=== PATIENT | female | born 1995 | race Caucasian/White ===

== ENCOUNTER 2017-07-25 01:21 | Emergency (ER) | payer SELFPAY ==
[~2017-07-25] VITALS: Ht 160 cm; Wt 52.3 kg
[2017-07-25 01:22] VITALS: BP 115/73; PULSE 86; RESP 16; TEMP 98.6; O2SAT 98
[2017-07-25] MEDS ORDERED: SODIUM CHLOR 0.9% 1000 ML INJ 1,000 ML IV ONE (01:45)
[2017-07-25] MEDS ORDERED: ONDANSETRON HCL 4 MG/2 ML VIAL IV ONE (01:45)
[2017-07-25 01:56] LABS: AUTOMATED NEUTROPHIL # 3.5 TH/MM3 (1.8-7.7); BASOPHIL % 0.5 % (0.0-2.0); EOSINOPHIL # 0.2 TH/MM3 (0-0.4); EOSINOPHIL % 2.9 % (0.0-4.0); HEMATOCRIT 35.1 % (35.0-46.0); HEMO FLAGS DIFF FINAL; LYMPH % 46.9 % (9.0-44.0); LYMPHOCYTE # 3.9 TH/MM3 (1.0-4.8); MEAN CELL VOLUME 89.4 FL (80.0-100.0); MEAN CORPUSCULAR HEMOGLOBIN 29.6 PG (27.0-34.0); MEAN CORPUSCULAR HGB CONC 33.2 % (32.0-36.0); MONO % 7.2 % (0.0-8.0); NEUT % 42.5 % (16.0-70.0); PLATELET COUNT 209 TH/MM3 (150-450); RED BLOOD COUNT 3.93 MIL/MM3 (4.00-5.30); RED CELL DISTRIBUTION WIDTH 14.2 % (11.6-17.2); WHITE BLOOD COUNT 8.3 TH/MM3 (4.0-11.0)
[2017-07-25 02:27] LABS: ACETAMINOPHEN LESS THAN 2.0 MCG/ML (10.0-30.0); ALCOHOL LESS THAN 3 MG/DL (0-5); ALKALINE PHOSPHATASE 76 U/L (45-117); ALT (GPT) 24 U/L (9-42); ANION GAP 11 MEQ/L (5-15); AST (GOT) 21 U/L (16-38); BICARBONATE 25.5 MEQ/L (21.0-32.0); BLOOD UREA NITROGEN 14 MG/DL (7-18); CHLORIDE 102 MEQ/L (98-107); GLOMERULAR FILTRATION RATE 84 ML/MIN (>89); SODIUM (NA) 138 MEQ/L (136-145); TOTAL BILIRUBIN ADULT 0.2 MG/DL (0.2-1.0)
[2017-07-25 02:30] LABS: POTASSIUM 2.9 MEQ/L (3.5-5.1)
[2017-07-25] MEDS ORDERED: valACYclovir HCL 500 MG TAB PO ONE (02:30)
--- NOTE | 2017-07-25 02:37 | RADRPT ---
EXAM DATE/TIME: 07/25/2017 01:43 [place] COMPARISON: No previous studies available for comparison. INDICATIONS : Nausea and vomiting from a heroin overdose. MEDICAL HISTORY : None. SURGICAL HISTORY : None. ENCOUNTER: Initial ACUITY: 1 day PAIN SCORE: 0/10 LOCATION: Bilateral chest FINDINGS: A single view of the chest demonstrates the lungs to be symmetrically aerated without evidence of mas s, infiltrate or effusion. The cardiomediastinal contours are unremarkable. Osseous structures are intact. CONCLUSION: No acute disease. Rowdy Milian Jr., MD on July 25, 2017 at 2:36 Board Certified Radiologist. This report was verified electronically.
[2017-07-25 02:43] VITALS: O2SAT 100
[2017-07-25 02:48] LABS: BACTERIA, URINE RARE /hpf; BLOOD, URINE NEG (NEG); COMMENT (UR) CULTURE INDICATED; CULTURE IF INDICATED CULTURE INDICATED; GLUCOSE,URINE 70 mg/dL (NEG); HYALINE CAST, URINE 29 /lpf (RARE); KETONE, URINE NEG (NEG); MUCUS URINE MOD /lpf (OCC); NITRITE,URINE NEG (NEG); SQUAMOUS EPITHELIAL CELL URINE 1 /hpf (0-5); URINE COLOR YELLOW (YELLW/STRAW)
--- NOTE | 2017-07-25 03:23 | PD ---
HPI Chief Complaint: OD/ Ingestion Time Seen by Provider: 01:26 Travel History International Travel<30 days: No Contact w/Intl Traveler<30days: No Traveled to known affect area: No History of Present Illness HPI The patient is a 21 year old female who presents to the [facility] emergency department with a history of reportedly yesterday leaving a sober living facility. She reports that she used heroin for the first time again and accidentally overdosed. She denies any suicidal or homicidal ideations. The patient was noted to be unresponsive upon ambulance services arrival when her friend called. The patient was noted to be apneic, lips blue. The patient had IV access obtained and was given 0.4 mg of Narcan IV and then had resolution of her respiratory depression. On review of systems, the patient reports having a rash around the right eye. She reports that it began yesterday and is painful. She denies having any eye drainage or pain in the eye itself. On review of systems, she denies any recent fevers, cough, congestion, neck pain, chest pain , shortness of breath, abdominal pain, vomiting, diarrhea, urinary symptoms, or other neurologic symptoms. She denies having any known history of hepatitis C or HIV. LMP: And did a few days ago [facility] Past Medical History Narrative Medical The Patient's past medical history is significant for IV drug use since 19 years of age. The patient has a history of genital and oral herpes outbreaks in the past. Medical History: Denies Significant Hx Medical other: Yes (iv drug abuse) ?: Not LMP: 07/20/2017 Past Surgical History Surgical History: No Previous Surgery Social History Alcohol Use: No Tobacco Use: Yes (1ppd) Substance Use: Yes (heroine ) Allergies-Medications (Allergen,Severity, Reaction): Coded Allergies: No Known Allergies (Unverified , 07/25/17) Reported Meds & Prescriptions Reported Meds & Active Scripts Active No Active Prescriptions or Reported Medications Review of Systems Except as stated in HPI: all other systems reviewed are Neg General / Constitutional: No: Fever Eyes: No: Visual changes HENT: No: Headaches Cardiovascular: No: Chest Pain or Discomfort Respiratory: No: Shortness of Breath Gastrointestinal: No: Abdominal Pain Genitourinary: No: Dysuria Musculoskeletal: No: Pain Skin: Positive Rash Neurologic: Positive: Change in Mentation, No: Weakness, Focal Abnormalities, Headache, Slurred Speech, Sensory Disturbance Psychiatric: No: Depression Endocrine: No: Polydipsia Hematologic/Lymphatic: No: Easy Bruising Physical Exam Narrative General: The patient is a well-developed well-nourished female who arrives nauseated, dry heaving on arrival. Head and Neck exam: Head is normocephalic atraumatic. Eyes: EOMI, pupils are equal round and reactive to light. No conjunctival injection. The patient is noted to have slight erythema under the right eye, and overlying the erythema are tiny pustules. This also extends to the upper eyelid medial aspect. Eyes the eye itself does not appear to be involved. Nose: Midline septum with pink mucous membranes Mouth: Dentition unremarkable. Moist mucus membranes. Posterior oropharynx is not erythematous. No tonsillar hypertrophy. Uvula midline. Airway patent. Neck: No palpable lymphadenopathy. No nuchal rigidity. No thyromegaly. Cardiovascular: Regular rate and rhythm without murmurs, gallops, or rubs. Lungs: Clear to auscultation bilaterally. No wheezes, rhonchi, or rales. Abdomen: Soft, without tenderness to palpation in all 4 quadrants of the abdomen. No guarding, rebound, or rigidity. Normal bowel sounds are audible. No tenderness on palpation of McBurney's point. Extremities: No clubbing, cyanosis, or edema. 2+ pulses in all 4 extremities. No calf tenderness on palpation. Back: No spinous process tenderness to palpation. No costovertebral angle tenderness to palpation. Neurologic Exam: Grossly nonfocal. Skin Exam: No rash noted. Intact skin that is warm and dry. Data Data Last Documented VS Vital Signs Date Time Temp Pulse Resp B/P (MAP) Pulse Ox O2 Delivery O2 Flow Rate FiO2 07/25/17 02:43 100 07/25/17 01:22 98.6 86 16 115/73 (87) Orders Orders Complete Blood Count With Diff (07/25/17 01:36) Comprehensive Metabolic Panel (07/25/17 01:36) Lipase (07/25/17 01:36) Urinalysis - C+S If Indicated (07/25/17 01:36) Chest, Single Ap (07/25/17 01:36) Iv Access Insert/Monitor (07/25/17 01:36) Ecg Monitoring (07/25/17 01:36) Oximetry (07/25/17 01:36) Ed Urine Pregnancytest Poc (07/25/17 01:36) Drug Screen, Random Urine (07/25/17 01:36) Alcohol (Ethanol) (07/25/17 01:36) Salicylates (Aspirin) (07/25/17 01:36) Tylenol (Acetaminophen) (07/25/17 01:36) Sodium Chlor 0.9% 1000 Ml Inj (Ns 1000 M (07/25/17 01:45) Ondansetron Inj (Zofran Inj) (07/25/17 01:45) Valacyclovir (Valtrex) (07/25/17 02:30) Urine Culture (07/25/17 02:30) Ceftriaxone Inj (Rocephin Inj) (07/25/17 04:00) Potassium Chloride Eff (K-Lyte Cl Eff) (07/25/17 04:00) Labs Laboratory Tests Test 07/25/17 01:49 07/25/17 02:30 White Blood Count 8.3 TH/MM3 Red Blood Count 3.93 MIL/MM3 Hemoglobin 11.6 GM/DL Hematocrit 35.1 % Mean Corpuscular Volume 89.4 FL Mean Corpuscular Hemoglobin 29.6 PG Mean Corpuscular Hemoglobin Concent 33.2 % Red Cell Distribution Width 14.2 % Platelet Count 209 TH/MM3 Mean Platelet Volume 8.5 FL Neutrophils (%) (Auto) 42.5 % Lymphocytes (%) (Auto) 46.9 % Monocytes (%) (Auto) 7.2 % Eosinophils (%) (Auto) 2.9 % Basophils (%) (Auto) 0.5 % Neutrophils # (Auto) 3.5 TH/MM3 Lymphocytes # (Auto) 3.9 TH/MM3 Monocytes # (Auto) 0.6 TH/MM3 Eosinophils # (Auto) 0.2 TH/MM3 Basophils # (Auto) 0.0 TH/MM3 CBC Comment DIFF FINAL Differential Comment Blood Urea Nitrogen 14 MG/DL Creatinine 0.87 MG/DL Random Glucose 212 MG/DL Total Protein 7.0 GM/DL Albumin 3.3 GM/DL Calcium Level 8.7 MG/DL Alkaline Phosphatase 76 U/L Aspartate Amino Transf (AST/SGOT) 21 U/L Alanine Aminotransferase (ALT/SGPT) 24 U/L Total Bilirubin 0.2 MG/DL Sodium Level 138 MEQ/L Potassium Level 2.9 MEQ/L Chloride Level 102 MEQ/L Carbon Dioxide Level 25.5 MEQ/L Anion Gap 11 MEQ/L Estimat Glomerular Filtration Rate 84 ML/MIN Lipase 94 U/L Salicylates Level 1.7 MG/DL Acetaminophen Level LESS THAN 2.0 MCG/ML Ethyl Alcohol Level LESS THAN 3 MG/DL Urine Color YELLOW Urine Turbidity HAZY Urine pH 6.0 Urine Specific [place] 1.021 Urine Protein 100 mg/dL Urine Glucose (UA) 70 mg/dL Urine Ketones NEG mg/dL Urine Occult Blood NEG Urine Nitrite NEG Urine Bilirubin NEG Urine Urobilinogen LESS THAN 2.0 MG/DL Urine Leukocyte Esterase NEG Urine RBC 33 /hpf Urine WBC 9 /hpf Urine Squamous Epithelial Cells 1 /hpf Urine Amorphous Sediment RARE Urine Bacteria RARE /hpf Urine Hyaline Casts 29 /lpf Urine Mucus MOD /lpf Microscopic Urinalysis Comment CULTURE INDICATED Urine Opiates Screen NEG Urine Barbiturates Screen NEG Urine Amphetamines Screen NEG Urine Benzodiazepines Screen NEG Urine Cocaine Screen NEG Urine Cannabinoids Screen NEG MDM Medical Decision Making Medical Screen Exam Complete: Yes Emergency Medical Condition: Yes Medical Record Reviewed: Yes Interpretation(s) Last Impressions Chest X-Ray 07/25/17 0136 Signed Impressions: Service Date/Time: Tuesday, July 25, 2017 01:43 - CONCLUSION: No acute disease. Rowdy Milian Jr., MD Differential Diagnosis Intentional versus unintentional overdose, versus aspiration Narrative Course During the course of the patients emergency department visit, the patients history, examination, and differential diagnosis were reviewed with the patient. The patient had IV access obtained and blood work sent for analysis. The patient was placed on a monitoring specialist with oximetry and blood pressure monitoring. The patient was initially provided normal saline 1 L IV fluid bolus, Zofran 4 mg IV. Given the patient's rash on the skin near the right eye with reported history of 2 weeks ago having herpes simplex involving her mouth, the patient was given Valtrex 1 g by mouth 1. The patients laboratory studies were reviewed and remarkable for a white count of 8.3, hemoglobin 11.6, platelets 209 with 46.9 lymphocytes. CMP is remarkable for potassium of 2.9, glucose 212, albumin 3.3, lipase 94, alcohol level less than 3, urine drug screen is negative, salicylate 1.7, acetaminophen less than 2, urinalysis shows 100 protein, glucose 70, rbc's 33, WBC 9, bacteria rare, culture indicated. The patient was given Rocephin 1 g IV. Radiology studies were reviewed and remarkable for a chest x-ray that shows no acute cardiopulmonary disease. The patient will be given a prescription for Valtrex and Macrobid. During the patient's observation, the patient continued to be easily arousable. The patient had no further decline in her respiratory rate or oxygenation. The patient will be discharged home. The patient is resting comfortably and feels better, is alert and in no distress. The patients results and examination findings were discussed with the patient. The repeat examination is unremarkable and benign. The history, exam, diagnostic testing, and current condition do not suggest any significant pathology to warrant further testing, continued ED treatment, admission, or surgical evaluation at this point. The vital signs have been stable. The patient does not have uncontrollable pain, intractable vomiting, or other significant symptoms. The patient's condition is stable and appropriate for discharge. The patient will pursue further outpatient evaluation with a primary care physician or other designated or consulting physician as indicated in the discharge instructions. The patient expressed understanding and was agreeable with this plan. Diagnosis Primary Impression: Accidental heroin overdose Qualified Codes: T40.1X1A - Poisoning by heroin, accidental (unintentional), initial encounter Additional Impressions: Urinary tract infection Qualified Codes: N39.0 - Urinary tract infection, site not specified Herpes simplex dermatitis of eyelid Admitting Information Admitting Physician Requests: Observation Referrals: Primary Care Physician 2 days Patient Instructions: General Instructions, Opioid Overdose (ED), Urinary Tract Infection in Women (ED) Med/Other Pt SpecificInfo: Prescription(s) given Scripts Nitrofurantoin Monohydrate Macrocrystals (Macrobid) 100 Mg Cap 100 MG PO BID for Infection, #20 CAP 0 Refills Prov: Erica Grey MD 07/25/17 Valacyclovir (Valtrex) 1,000 Mg Tab 1000 MG PO TID for Mgmt Viral Infection, #21 TAB 0 Refills Prov: Erica Grey MD 07/25/17 Disposition: 01 DISCHARGE HOME Condition: Stable Erica Grey MD Jul 25, 2017 03:23
[2017-07-25] MEDS ORDERED: cefTRIAXone INJ 1,000 MG in SODIUM CHLORIDE 0.9% INJ 100 ML IV ONE (04:00)
[2017-07-25] MEDS ORDERED: POTASSIUM CHLORIDE 25 MEQ EFFERVESCENT TAB PO ONE (04:00)
[2017-07-25] MEDS ORDERED: VALT1TAB PO (05:55)
[2017-07-25] MEDS ORDERED: MACR100C2 PO (05:55)
== END 2017-07-25 06:33 | disposition home or self-care (01) ==
LOC: NEPE 01:21
DX: T40.1X1A Poisoning by heroin, accidental (unintentional), initial encounter (principal); N39.0 Urinary tract infection, site not specified; B00.59 Other herpesviral disease of eye; F17.200 Nicotine dependence, unspecified, uncomplicated
CPT/HCPCS: 71010; 80053; 80307; 81001; 83690; 84703; 85025; 87086; 96361; 96365; 96375; 99284; J0696; J2405; J7030